=== PATIENT | male | born 2000 | race Caucasian/White ===

== ENCOUNTER 2022-11-10 15:39 | Emergency (ER) | payer OTHER ==
[2022-11-10 15:49] VITALS: RESP 17; TEMP 98.2; BMI 36.0
[2022-11-10] MEDS ORDERED: predniSONE 20 MG TABLET (UD) PO ONE (16:05)
[2022-11-10] MEDS ORDERED: ALBUTEROL SO4 2.5/IPRATROPIUM 0.5 INH SOL 3 ML VIAL.NEB. NEB ONE ×3 (16:05→16:20)
[2022-11-10] MEDS ORDERED: predniSONE 20 MG TABLET (UD) ONE (16:20)
[2022-11-10] MEDS ORDERED: ALBUTEROL SULFATE 0.021% (0.63 MG/3 ML) VIAL.NEB NEB ONE (16:52)
[2022-11-10 18:49] LABS: BASO % 0.2 % (0-2.0); EOS % 0.9 % (0-4.5); HEMATOCRIT 43.4 % (35.4-49); HEMOGLOBIN 14.2 GM/dL (11.7-16.9); LYMPH % 3.8 % (8-40); MCH 27.3 pg (25.7-33.7); MCHC 32.8 g/dl (32.0-35.9); MEAN CELL VOLUME 83.3 fl (80-96); MEAN PLT VOLUME 9.1 fl (7.5-11.1); MONO % 3.9 % (3.8-10.2); NEUT % 91.2 % (42.8-82.8); PLATELET COUNT 209 10^3/uL (134-434); RBC 5.21 M/mm3 (4.00-5.60); RDW 13.8 % (11.9-15.9); WHITE BLOOD COUNT 16.2 K/mm3 (4.0-10.0)
[2022-11-10 19:04] LABS: INR 1.17 (0.83-1.09); PROTHROMBIN TIME (PATIENT) 13.6 SEC (9.7-13.0)
[2022-11-10 19:06] LABS: ACTIVATED PTT 33.7 SECONDS (25.2-36.5)
[2022-11-10 19:25] LABS: ANISOCYTOSIS 1+; MACROCYTOSIS 0
[2022-11-10 19:26] LABS: POTASSIUM 3.7 mmol/L (3.5-5.1)
[2022-11-10 19:29] LABS: BLOOD UREA NITROGEN 7.8 mg/dL (7-18)
[2022-11-10 19:33] LABS: BILIRUBIN,TOTAL 1.1 mg/dL (0.2-1); TOT PROT 7.7 g/dl (6.4-8.2)
[2022-11-10 20:09] VITALS: BP 120/72; PULSE 96
== END 2022-11-10 20:17 | disposition home or self-care (01) ==
LOC: JERFT 15:39
PROC: 3E0F7GC Introduction of Other Therapeutic Substance into Respiratory Tract, Via Natural or Artificial Opening (ICD-10-PCS; principal; 2022-11-10)
PROC: 3E0F7GC Introduction of Other Therapeutic Substance into Respiratory Tract, Via Natural or Artificial Opening (ICD-10-PCS; 2022-11-10)
DX: J45.909 Unspecified asthma, uncomplicated (principal); R07.89 Other chest pain; J31.0 Chronic rhinitis; R06.02 Shortness of breath; Z20.822 Contact with and (suspected) exposure to COVID-19
CPT/HCPCS: 36415; 71046-TC-FY; 80053; 85025; 85379; 85610; 85730; 87635; 93005; 93010; 99285-25